=== PATIENT | female | born 1970 | race Caucasian/White ===

== ENCOUNTER 2018-01-05 08:46 | Emergency (ER) | payer MEDICAID ==
--- NOTE | 2018-01-05 09:14 | EDPHY ---
H & P Smoking Status: Never smoked Time Seen by Provider: 01/05/18 08:59 HPI/ROS: CHIEF COMPLAINT: Fall, headache, facial injuries HISTORY OF PRESENT ILLNESS: 47-year-old female presents to the emergency department by private vehicle after mechanical fall at 8:15 a.m. This morning. Patient states that she was running with her daughter for the bus and the strap on her purse broke and then she tripped over her purse and fell and hit the right side of her face. She does not think that she lost consciousness. She feels "out of it."She is having severe pain especially in the left side of her jaw. She does not feel like her teeth are lining up. She denies any other dental injury. No neck or back pain. No chest pain or difficulty breathing. She denies any presyncopal symptoms prior to her fall. Denies abdominal pain. Denies injury to her upper or lower extremities. REVIEW OF SYSTEMS: Constitutional: No fever, no chills. Eyes: No double or blurry vision. ENT: Jaw pain as above. Facial pain. No sore throat. Respiratory: No cough, no shortness of breath. Cardiac: No chest pain. Gastrointestinal: No abdominal pain, vomiting or diarrhea. Genitourinary: No dysuria. Musculoskeletal: No neck or back pain. Skin: No rashes. Neurological: headache. (Jaqueline Caro) Past Medical/Surgical History: Postmenopausal, history of ovarian cysts (Jaqueline Caro) Social History: Single and lives in [place] (Jaqueline Caro M) Physical Exam: General Appearance: Alert, no distress. Patient is answering questions appropriately. She has superficial abrasion noted to the right side of her cheek. She has some ecchymosis noted over the zygomatic arch as well as over the right anterior aspect of her chin. Eyes: Pupils equal and round. Extraocular motions are all intact. ENT: Mouth: Mucous membranes moist. No dental injury. She does have some malocclusion is unable to bite down without severe pain and feels like her teeth do not line up. She has mild pain with palpation at the left TMJ. No palpable crepitus or other bony abnormality. No clicking. She does have a superficial abrasion to the inside of the right upper lip. Not suturable. Respiratory: No wheezing, rhonchi, or rales, lungs are clear to auscultation. Cardiovascular: Regular rate and rhythm. Gastrointestinal: Abdomen is soft and nontender, no masses, no rebound or guarding, bowel sounds normal. Neurological: Alert and oriented x 3, cranial nerves II through XII grossly intact Skin: Warm and dry, no rashes. Musculoskeletal: Nontender to palpate along the cervical, thoracic or lumbar spine. Neck is supple. Extremities: Full range of motion and no peripheral edema. Psychiatric: Patient is oriented X 3, there is no agitation. (Jaqueline Caro) Constitutional: Initial Vital Signs Temperature (C) 36.7 C 01/05/18 08:48 Heart Rate 82 01/05/18 08:48 Respiratory Rate 18 01/05/18 08:48 Blood Pressure 128/88 H 01/05/18 08:48 O2 Sat (%) 100 01/05/18 08:48 O2 Delivery Mode Room Air Allergies/Adverse Reactions: Penicillins Allergy (Verified 01/05/18 08:48) Home Medications: Medication Instructions Recorded NK [No Known Home Meds] 11/03/15 Medical Decision Making - Diagnostics Imaging: Discussed imaging studies w/ calliope player Radiologist ED Course/Re-evaluation: 47-year-old female presents to the emergency department with facial pain and malocclusion and headache. Patient does not think that she lost consciousness. She feels out of it and has headache. I discussed the pros and cons of CT imaging of her brain including radiation exposure and the patient requests CT scan of her brain. The patient also have a CT scan of the maxillofacial bones to evaluate for possible mandible injury. Patient believes her tetanus shot is current. CT imaging of the brain and facial bones revealed no facial fractures, skull fractures or intracranial abnormality. The patient was reassured. She was given closed-head injury precautions. She was told to avoid any activity that might put her at risk for another head injury for at least 1 week. Because of the malocclusion symptoms that she has that are subjective, I recommended she follow up with her primary care provider or and or a dentist. We did discuss the possibility of having a meniscus injury in her left TMJ although there is no asymmetry on CT scan. Patient have soft foods and return if she has any other concerns. (Jaqueline Caro) I did not see this patient while she was in the emergency department. However her care was discussed with the PA while the patient was in the department. I agree with treatment plan and management (Liam Smyth) Differential Diagnosis: Head injury including but not limited to concussion, skull fracture, intraparenchymal contusion, subarachnoid, subdural and epidural hematoma. Facial pain including but not limited to facial fracture, minimal dislocation, contusion (Jaqueline Caro) Departure - Departure Disposition: Home, Routine, Self-Care Clinical Impression: Facial contusion, Head injury Condition: Good Instructions: Concussion (ED), Head Injury (ED), Facial Contusion (ED) Additional Instructions: Return to the emergency department if you develop worsening headache, vomiting, altered mental status, or if you feel worse in any way. Avoid any activity that might put you at risk for another head injury for at least one week. Referrals: Shanika Farias MD [Primary Care Provider] - As per Instructions Stand Alone Forms: Work Excuse
[2018-01-05 09:37] VITALS: BP 130/83
== END 2018-01-05 10:25 | disposition home or self-care (01) ==
DX: S09.90XA Unspecified injury of head, initial encounter (principal); S00.83XA Contusion of other part of head, initial encounter; W01.198A Fall on same level from slipping, tripping and stumbling with subsequent striking against other object, initial encounter; Y99.8 Other external cause status; Y93.02 Activity, running

== ENCOUNTER 2019-03-13 13:47 | Emergency (ER) | payer MEDICAID | END 2019-03-13 16:50 | disposition home or self-care (01) ==